=== PATIENT | female | born 1940 | race Caucasian/White ===

== ENCOUNTER → 2016-09-17 | Outpatient (CLI) | payer MEDICARE, OTHER ==
[2016-09-17 11:37] LABS: CHOLESTEROL 128.83 mg/dL (0-200); Direct HDL 49 mg/dL (>40); TRIGLYCERIDES 69 mg/dL (<150)
[2016-09-17 11:50] LABS: DIRECT LDL 68 mg/dL (<100)
== END ==
LOC: OD 09:49
PROVIDERS: ATTEND Internal Medicine Cardiovascular Disease
DX: E78.00 Pure hypercholesterolemia, unspecified (principal)
CPT/HCPCS: 36415; 80061; 84443

== ENCOUNTER → 2017-03-25 | Outpatient (CLI) | payer MEDICARE, OTHER ==
[2017-03-25 14:04] LABS: THYROID STIMULATING HORMONE 7.5 uIU/mL (0.47-4.68)
== END ==
LOC: OD 11:52
PROVIDERS: ATTEND Internal Medicine Cardiovascular Disease
DX: E03.9 Hypothyroidism, unspecified (principal)
CPT/HCPCS: 36415; 84439; 84443

== ENCOUNTER 2017-08-07 13:39 | Emergency (ER) | payer MEDICARE, OTHER ==
[2017-08-07] MEDS ORDERED: LIDOCAINE 1.5%/EPINEPHRINE INJ-PF 30 ML SDV INJ ONE (13:43)
[2017-08-07] MEDS ORDERED: DIPH/PERTUSS(ACELL)/TETANUS VAC/PF 0.5 ML SYR (>=10YO) IM ONE (14:00)
--- NOTE | 2017-08-07 14:28 | RADIOLOGY REPORT (SQ) ---
EXAM DESCRIPTION: CT HEAD WITHOUT COMPLETED DATE/TIME: 08/07/2017 2:18 pm REASON FOR STUDY: fall loc lac COMPARISON: None. TECHNIQUE: Axial images acquired through the brain without intravenous contrast. Images reviewed wi th bone, brain and subdural windows. Images stored on PACS. All CT scanners at this facility use dose modulation, iterative reconstruction, and/or weight based d osing when appropriate to reduce radiation dose to as low as reasonably achievable (ALARA). [facility]: Dose Right [facility]: CareDose [facility]: Dose Right [facility]: Teradose 4D [facility]: Smart [facility] RADIATION DOSE: mGy. LIMITATIONS: None. FINDINGS: VENTRICLES: Prominent. CEREBRUM: No masses. No hemorrhage. No midline shift. Areas of low density in the white matter mos t likely due to chronic micro-vascular ischemic change. No evidence for acute infarction. CEREBELLUM: No masses. No hemorrhage. No alteration of density. No evidence for acute infarction. EXTRAAXIAL SPACES: Mild age-related involutional change. No fluid collections. No masses. ORBITS AND GLOBE: No intra- or extraconal masses. Normal contour of globe without masses. CALVARIUM: No fracture. PARANASAL SINUSES: No fluid or mucosal thickening. SOFT TISSUES: No mass or hematoma. OTHER: No other significant finding. IMPRESSION: MILD CHRONIC CHANGES OF ATROPHY AND MICROVASCULAR ISCHEMIA. NO ACUTE PROCESS. EVIDENCE OF ACUTE STROKE: NO. TECHNICAL DOCUMENTATION: JOB ID: [id number] Quality ID # [id number]: Final reports with documentation of one or more dose reduction techniques (e.g., Au tomated exposure control, adjustment of the mA and/or kV according to patient size, use of iterative reconstruction technique) 2010 [employer]- All Rights Reserved
--- NOTE | 2017-08-07 15:19 | ER Document Report ---
ED General - General Chief Complaint: Syncope Stated Complaint: FAINTING Time Seen by Provider: 08/07/17 13:42 Notes: 76-year-old female with no cardiac or neurologic issues presents with an episode of syncope. She felt dizzy while leaving a school function and carpal to the ground hitting a piece of furniture on the way. Per her daughter there is no like activity and she was unconscious for only a couple of minutes and regained full consciousness. No loss of bowel or bladder no tongue biting. Denies chest pain palpitations nausea vomiting or any other symptoms before or after the syncopal episode. She now feels well without headache. EMS reported a laceration to the back of the head. She was transiently hypotensive in the field is now normotensive. TRAVEL OUTSIDE OF THE [place] IN LAST 30 DAYS: No - Related Data Allergies/Adverse Reactions: No Known Allergies Allergy (Unverified 05/09/11 10:12) Past Medical History - Social History Smoking Status: Never Smoker Family History: None - Past Medical History Cardiac Medical History: Denies: Hx Heart Attack, Hx Hypertension Pulmonary Medical History: Denies: Hx Asthma Neurological Medical History: Denies: Hx Cerebrovascular Accident, Hx Seizures GI Medical History: Denies: Hx Hepatitis, Hx Hiatal Hernia, Hx Ulcer Infectious Medical History: Denies: Hx Hepatitis Past Surgical History: Denies: Hx Mastectomy, Hx Open Heart Surgery, Hx Pacemaker Review of Systems - Review of Systems Notes: REVIEW OF SYSTEMS GEN: Denies fever, chills, weight loss ENT: Denies sore throat, nasal discharge, ear pain EYES: Denies blurry vision, eye pain, discharge CV: Denies chest pain, palpitations, edema RESP: Denies cough, shortness of breath, wheezing GI: Denies abdominal pain, nausea, vomiting, diarrhea MSK: Denies joint pain/swelling, edema, SKIN: Denies rash, skin lesions LYMPH: Denies swollen glands/lymph nodes NEURO: Denies headache, focal weakness or numbness, dizziness or loss of consciousness. PSYCH: Denies depression, suicidal or homicidal ideation PHYSICAL EXAMINATION General: No acute distress, well-nourished Head: While occipital hematoma with once I made a laceration, normocephalic ENT: Mouth normal, oropharynx moist, no exudates or tonsillar enlargement Eyes: Conjunctiva normal, pupils equal, lids normal Neck: No JVD, supple, no guarding CVS: Normal rate, regular rhythm, no murmurs Resp: No resp distress, equal and normal breath sounds bilaterally GI: Nondistended, soft, no tenderness to palpation, no rebound or guarding Ext: No deformities, no edema, normal range of motion in upper and lower ext Back: No CVA or midline TTP Skin: No rash, warm Lymphatic: No lymphadeopathy noted Neuro: Awake, alert. Face symmetric. His all extremities equally. GCS 15. Physical Exam - Vital signs Vitals: Resp 16 08/07/17 13:59 Course - Re-evaluation Re-evalutation: 08/07/17 15:37 Patient presents with syncopal episode with prodrome. In the ED she is normotensive without neurologic deficits and evidence of mild head trauma. Differential includes dehydration I abnormalities less likely cardiac arrhythmia or ACS because she has no chest pain. ED workup included physical exam which showed no stigmata of valvular disease, EKG which was normal, labs which were normal, head CT which was normal. Laceration was repaired. I have for the patient admission but she prefers to be discharged. She will follow-up with her primary care doctor for further testing. Her family is aware and is okay with this plan. Insert discharge 08/07/17 15:38 I have discussed with the patient there likely diagnosis, aftercare plan, follow -up plans and my usual and customary return precautions. They verbalized understanding of this. - Vital Signs Vital signs: Temp Pulse Resp BP Pulse Ox 17 147/71 H 08/07/17 14:00 08/07/17 14:10 Discharge - Discharge Clinical Impression: Syncope Qualifiers: Syncope type: unspecified Qualified Code(s): R55 - Syncope and collapse Condition: Good Disposition: HOME, SELF-CARE Instructions: Syncopal Episode ([facility]) Additional Instructions: He was seen in the ER for a fainting episode. Your blood testing, CAT scan of your brain, and EKG were all normal. You were offered admission, however elected to be discharged home. Please follow-up with your primary care doctor within 2 days. Please return to the emergency room if he felt dizzy, chest pain or palpitations or any other symptoms that are concerning. Referrals: KEATON COX, [Primary Care Provider] - Follow up as needed
[2017-08-07 15:40] VITALS: BP 140/70
--- NOTE | 2017-08-07 20:30 | EKG REPORT ---
SEVERITY:- ABNORMAL ECG - SINUS RHYTHM PROBABLE LEFT ATRIAL ABNORMALITY CONSIDER RIGHT VENTRICULAR HYPERTROPHY BORDERLINE INFERIOR Q WAVES : Confirmed by: Ambreen Billingsley 07-Aug-2017 20:30:33
== END 2017-08-07 15:41 | disposition home or self-care (01) ==
LOC: ER 13:39
DX: R55 Syncope and collapse (principal); S01.01XA Laceration without foreign body of scalp, initial encounter; W19.XXXA Unspecified fall, initial encounter; Y92.89 Other specified places as the place of occurrence of the external cause
CPT/HCPCS: 93005; 99285; 70450; 93010; 12001; J3490

== ENCOUNTER → 2017-10-02 | Outpatient (CLI) | payer MEDICARE, OTHER ==
[2017-10-02 09:26] LABS: ALANINE AMINOTRANSFERASE 25 U/L (9-52); ALKALINE PHOSPHATASE 70 U/L (38-126); ASPARTATE AMINO TRANSFERASE 24 U/L (14-36); BILIRUBIN,DIRECT 0.4 mg/dL (0.0-0.4); BILIRUBIN,TOTAL 0.4 mg/dL (0.2-1.3); CHOLESTEROL 132.17 mg/dL (0-200); TOTAL PROTEIN 6.9 g/dL (6.3-8.2); TRIGLYCERIDES 66 mg/dL (<150)
[2017-10-02 09:38] LABS: DIRECT LDL 65 mg/dL (<100)
== END ==
LOC: OD 08:39
PROVIDERS: ATTEND Internal Medicine Cardiovascular Disease
DX: E78.00 Pure hypercholesterolemia, unspecified (principal); Z79.899 Other long term (current) drug therapy
CPT/HCPCS: 36415; 80061; 80076

== ENCOUNTER → 2019-06-08 | Outpatient (CLI) | payer MEDICARE, OTHER ==
[2019-06-08 09:52] LABS: HEMATOCRIT 36.6 % (36.0-47.0); HEMOGLOBIN 11.9 g/dL (12.0-15.5); MEAN CORPUSCULAR HEMOGLOBIN 26.2 pg (27.0-33.4); MEAN CORPUSCULAR HGB CONC 32.6 g/dL (32.0-36.0); MEAN CORPUSCULAR VOLUME 80 fl (80-97); PLATELET COUNT 232 10^3/uL (150-450); RED BLOOD COUNT 4.55 10^6/uL (3.72-5.28); RED CELL DISTRIBUTION WIDTH 17.8 % (11.5-14.0); WHITE BLOOD COUNT 8.6 10^3/uL (4.0-10.5)
[2019-06-08 10:26] LABS: ALBUMIN 3.8 g/dL (3.5-5.0); ALKALINE PHOSPHATASE 90 U/L (38-126); ASPARTATE AMINO TRANSFERASE 27 U/L (14-36); CARBON DIOXIDE 25 mmol/L (22-30); GLUCOSE 97 mg/dL (75-110); TOTAL PROTEIN 7.1 g/dL (6.3-8.2)
[2019-06-08 10:37] LABS: DIRECT LDL 82 mg/dL (<100)
[2019-06-08 10:38] LABS: ANION GAP 11 (5-19); CHLORIDE 102 mmol/L (98-107)
[2019-06-08 10:40] LABS: BILIRUBIN,DIRECT 0.1 mg/dL (0.0-0.4); BILIRUBIN,TOTAL 0.3 mg/dL (0.2-1.3); BLOOD UREA NITROGEN 20 mg/dL (7-20); CALCIUM 9.6 mg/dL (8.4-10.2); CHOLESTEROL 148.26 mg/dL (0-200); POTASSIUM 4.4 mmol/L (3.6-5.0); TRIGLYCERIDES 68 mg/dL (<150)
[2019-06-08 10:42] LABS: FREE T4 (FREE THYROXINE) 1.21 ng/dL (0.78-2.19)
[2019-06-08 10:56] LABS: THYROID STIMULATING HORMONE 8.71 uIU/mL (0.47-4.68)
== END ==
LOC: LAB 09:08
PROVIDERS: ATTEND Internal Medicine Cardiovascular Disease
DX: I49.1 Atrial premature depolarization (principal); I10 Essential (primary) hypertension; E78.00 Pure hypercholesterolemia, unspecified; Z79.899 Other long term (current) drug therapy
CPT/HCPCS: 36415; 80048; 80061; 80076; 83735; 84439; 84443; 85027

== ENCOUNTER → 2019-09-10 | Outpatient (CLI) | payer MEDICARE, OTHER ==
[2019-09-10 10:46] LABS: ANION GAP 11 (5-19); BLOOD UREA NITROGEN 29 mg/dL (7-20); CALCIUM 9.5 mg/dL (8.4-10.2); CARBON DIOXIDE 26 mmol/L (22-30); CHLORIDE 103 mmol/L (98-107); GLUCOSE 93 mg/dL (75-110)
[2019-09-10 11:10] LABS: FREE T4 (FREE THYROXINE) 1.21 ng/dL (0.78-2.19)
[2019-09-10 11:24] LABS: THYROID STIMULATING HORMONE 6.76 uIU/mL (0.47-4.68)
== END ==
LOC: LAB 10:04
PROVIDERS: ATTEND Physician Assistant
DX: I49.1 Atrial premature depolarization (principal); E03.9 Hypothyroidism, unspecified; I10 Essential (primary) hypertension; Z79.899 Other long term (current) drug therapy
CPT/HCPCS: 36415; 80048; 83735; 84439; 84443